=== PATIENT | male | born 1955 ===

== ENCOUNTER 2023-02-05 03:50 | Day surgery (SDC) | payer OTHER ==
[2023-02-04 09:05] VITALS: BMI 28.5
[2023-02-05] MEDS ORDERED: GENTAMICIN SO4 80 MG/2 ML VIAL ONE (12:10)
[2023-02-05] MEDS ORDERED: VANCOMYCIN 1,000 MG VIAL (RESTRICTED TO ID ONLY) ONE (12:10)
[2023-02-05] MEDS ORDERED: oxyCODONE HCL 5 MG TABLET PO PRN (12:56)
[2023-02-05] MEDS ORDERED: PROMETHAZINE HCL 25 MG/1 ML VIAL IVPB PRN (12:56)
[2023-02-05] MEDS ORDERED: ONDANSETRON 4 MG/2 ML VIAL IVPUSH PRN (12:56)
[2023-02-05] MEDS ORDERED: LACTATED RINGERS SOLUTION 1,000 ML IV SCH (13:00)
[2023-02-05] MEDS ORDERED: MIDAZOLAM HCL 2 MG/2 ML SINGLE DOSE VIAL ONE (13:13)
[2023-02-05] MEDS ORDERED: PROPOFOL 20 ML ONE ×2 (13:13→15:17)
[2023-02-05] MEDS ORDERED: ceFAZolin SODIUM 1 GM VIAL ONE (13:15)
[2023-02-05] MEDS ORDERED: SODIUM CHLORIDE 0.9% P/F 10 ML VIAL IJ ONE ×2 (13:15)
[2023-02-05] MEDS ORDERED: VANCOMYCIN 1,000 MG VIAL (RESTRICTED TO ID ONLY) IVPB ONE ×2 (13:30→14:02)
[2023-02-05] MEDS ORDERED: GENTAMICIN SO4 80 MG/2 ML VIAL IVPB ONE ×2 (13:42→14:02)
[2023-02-05] MEDS ORDERED: ONDANSETRON 4 MG/2 ML VIAL ONE (13:45)
[2023-02-05] MEDS ORDERED: DEXAMETHASONE SOD PHOSPHATE 4 MG/1 ML VIAL ONE (13:45)
[2023-02-05] MEDS ORDERED: ceFAZolin SODIUM 1 GM VIAL IVPB ONE (13:48)
[2023-02-05] MEDS ORDERED: BUPIVACAINE HCL/PF 0.25% (2.5MG/ML) 10 ML VIAL ONE (13:51)
[2023-02-05] MEDS ORDERED: LIDOCAINE HCL 1%, 10 MG/ML (20ML VIAL) ONE (13:51)
[2023-02-05] MEDS ORDERED: ACETAMINOPHEN INJECTION 100 ML IVPB ONE (13:56)
[2023-02-05] MEDS ORDERED: BUPIVACAINE HCL/PF 0.25% (2.5MG/ML) 10 ML VIAL IJ ONE (14:01)
[2023-02-05] MEDS ORDERED: LIDOCAINE HCL 1%, 10 MG/ML (20ML VIAL) INF ONE (14:01)
[2023-02-05] MEDS ORDERED: FLUCONAZOLE 200 MG PREMIX BAG (IN SALINE) IVPB ONE (14:02)
[2023-02-05] MEDS ORDERED: FLUCONAZOLE 200 MG/NS 100 ML IVPB ONE (14:15)
[2023-02-05] MEDS ORDERED: METOPROLOL TARTRATE 5 MG/5 ML VIAL ONE (15:23)
[2023-02-05] MEDS ORDERED: oxyCODONE HCL 10 MG SUSTAINED ACTING TABLET ONE (17:36)
[2023-02-05 17:45] VITALS: RESP 20
[2023-02-05 18:01] VITALS: TEMP 97.7
[2023-02-05 18:06] VITALS: BP 120/75; PULSE 85
== END 2023-02-05 18:02 | disposition home or self-care (01) ==
LOC: JASU-SURG 03:50
PROVIDERS: ATTEND Urology
PROC: 0VUS0JZ Supplement Penis with Synthetic Substitute, Open Approach (ICD-10-PCS; principal; 2023-02-05 13:30)
DX: N52.9 Male erectile dysfunction, unspecified (principal)
CPT/HCPCS: 54401; 54405; C1813; 94760; C2622